=== PATIENT | male | born 1955 | race Caucasian/White ===

== ENCOUNTER 2021-06-07 22:45 | Inpatient (IN) | payer MEDICARE, MEDICAID ==
[~2021-06-07] VITALS: Ht 182.9 cm; Wt 79.0 kg
[2021-06-08] MEDS ORDERED: ringers solution, lactated 1000ml IV soln IV ONE
[2021-06-08 00:32] LABS: BASOPHILS % (AUTO) 0 % (0-1); EOSINOPHILS % (AUTO) 0 % (0-6); HEMATOCRIT 40.7 % (42.0-52.0); HEMOGLOBIN 14.2 g/dl (14.0-17.9); LYMPHOCYTES # (AUTO) 0.3 X10'3 (1.1-4.8); LYMPHOCYTES % (AUTO) 2.7 % (21-51); MEAN CORPUSCULAR HEMOGLOBIN 30.6 PG (27.0-31.0); MEAN CORPUSCULAR VOLUME 87.4 FL (78-98); MEAN PLATELET VOLUME 9.4 FL (7.4-10.4); MONOCYTES # (AUTO) 0.3 X10'3 (0-0.9); MONOCYTES % (AUTO) 3.2 % (2-12); NEUTROPHILS % (AUTO) 94.1 % (42-75); PLATELET COUNT 160 X10'3 (140-440); RED BLOOD COUNT 4.66 X10'6 (4.70-6.10); RED CELL DISTRIBUTION WIDTH 14.9 % (11.5-14.5); WHITE BLOOD COUNT 9.6 X10'3 (4.5-11.0)
[2021-06-08 00:34] LABS: ALANINE AMINOTRANSFERASE 21 U/L (12-78); ALBUMIN/GLOBULIN RATIO 0.6 (1.1-1.5); ALKALINE PHOSPHATASE 108 IU/L (46-116); ANION GAP 24 (8-16); ASPARTATE AMINO TRANSFERASE 29 U/L (10-37); BILIRUBIN,TOTAL 0.2 MG/DL (0.1-1.0); BLOOD UREA NITROGEN 138 MG/DL (7-18); BUN/CREATININE RATIO 24.6 (5.4-32.0); CALCIUM 7.5 MG/DL (8.5-10.1); CHLORIDE 100 MMOL/L (99-107); CREATININE 5.62 MG/DL (0.60-1.10); GLUCOSE 120 MG/DL (70-104); SODIUM 139 MMOL/L (135-145); TOTAL CARBON DIOXIDE 15.4 MMOL/L (24-32); TOTAL PROTEIN 7.8 G/DL (6.4-8.2); eGFR 10 ML/MIN
[2021-06-08] MEDS ORDERED: acetaminophen 325mg tablet PO PRN (00:50)
[2021-06-08] MEDS ORDERED: ondansetron/PF 4mg/2ml inj IV PRN (00:50)
[2021-06-08] MEDS: sodium bicarbonate (8.4%) inj. 150 MEQ in dextrose 5%-water 1,000 ML IV SCH ×2 (01:48→16:20)
--- NOTE | 2021-06-08 02:55 | NUR ---
Received report from Joseph DIANA from ED. Patient came up to floor via gurney, patient able to transfer to bed stand by assistance. Bed placed in locked & low position. Call light within reach.
[2021-06-08 03:14] VITALS: BP 115/68
[2021-06-08 04:09] LABS: COLOR,URINE YELLOW (Yellow); UA COLLECTION TYPE CLN CATCH MIDSTREAM
[2021-06-08 04:10] LABS: CLARITY,URINE CLEAR (Clear); PROTEIN,URINE 30 mg/dl (Neg)
[2021-06-08 04:11] LABS: GLUCOSE, URINE NEGATIVE (Neg); KETONES,URINE NEGATIVE (Neg); LEUKOCYTE ESTERASE ,URINE TRACE (Neg); NITRITES, URINE NEGATIVE (Neg); OCCULT BLOOD,URINE MODERATE (Neg); UROBILINOGEN,URINE 0.2 E.U/dL (0.2-1.0)
[2021-06-08 04:12] LABS: BACTERIA,URINE FEW /HPF (Neg); RBC,URINE 0-2 /HPF (0-2); SQUAMOUS EPITHELIAL CELL,UR FEW /LPF (FEW); STARCH,URINE FEW /HPF (NEGATIVE); WBC,URINE 0-4 /HPF (0-4)
[2021-06-08 06:00] VITALS: BP 112/69
--- NOTE | 2021-06-08 06:26 | NUR ---
Problems reprioritized. Patient report given, questions answered & plan of care reviewed with Marge DIANA.
--- NOTE | 2021-06-08 06:45 | NUR ---
Patient in room ORTHO 4009C. I have received report from LEBRON JI and had the opportunity to ask questions and assume patient care.
[2021-06-08] MEDS ORDERED: dexamethasone 4mg/ml inj IV SCH (08:00)
[2021-06-08] MEDS ORDERED: heparin, porcine 5000 units/ml vial SQ SCH (08:00)
[2021-06-08] MEDS ORDERED: pantoprazole 40 MG vial IV SCH (08:00)
[2021-06-08] MEDS ORDERED: FLU VACC QS2021-22(6MOS UP)/PF 60 MCG/0.5 ML SYRINGE IM ONE (09:00)
[2021-06-08 10:00] VITALS: BP 104/49
[2021-06-08] MEDS: dexamethasone inj 6 MG in normal saline 50ml IV soln 50 ML IV SCH ×2 (11:13→19:58)
[2021-06-08 12:10] LABS: BASOPHILS % (AUTO) 0.1 % (0-1); EOSINOPHILS % (AUTO) 0 % (0-6); HEMATOCRIT 41.6 % (42.0-52.0); HEMOGLOBIN 13.9 g/dl (14.0-17.9); LYMPHOCYTES # (AUTO) 0.4 X10'3 (1.1-4.8); LYMPHOCYTES % (AUTO) 4.7 % (21-51); MEAN CORPUSCULAR HEMOGLOBIN 29.9 PG (27.0-31.0); MEAN CORPUSCULAR HGB CONC 33.5 g/dL (33.0-36.5); MEAN CORPUSCULAR VOLUME 89.1 FL (78-98); MEAN PLATELET VOLUME 9.3 FL (7.4-10.4); MONOCYTES # (AUTO) 0.4 X10'3 (0-0.9); MONOCYTES % (AUTO) 5.5 % (2-12); NEUTROPHILS # (AUTO) 7.1 X10'3 (1.8-7.7); NEUTROPHILS % (AUTO) 89.7 % (42-75); PLATELET COUNT 178 X10'3 (140-440); RED BLOOD COUNT 4.66 X10'6 (4.70-6.10); RED CELL DISTRIBUTION WIDTH 14.7 % (11.5-14.5)
[2021-06-08 12:23] LABS: D-DIMER 1.27 MG/L FEU (0-0.50)
[2021-06-08 12:25] LABS: ALANINE AMINOTRANSFERASE 18 U/L (12-78); ALBUMIN 2.8 G/DL (3.4-5.0); ALBUMIN/GLOBULIN RATIO 0.6 (1.1-1.5); ALKALINE PHOSPHATASE 92 IU/L (46-116); ANION GAP 19 (8-16); ASPARTATE AMINO TRANSFERASE 33 U/L (10-37); BILIRUBIN,TOTAL 0.2 MG/DL (0.1-1.0); BLOOD UREA NITROGEN 114 MG/DL (7-18); BUN/CREATININE RATIO 33.2 (5.4-32.0); C-REACTIVE PROTEIN 9.06 MG/DL (0.0-0.5); CALCIUM 7.5 MG/DL (8.5-10.1); CHLORIDE 104 MMOL/L (99-107); CREATININE 3.43 MG/DL (0.60-1.10); GLUCOSE 118 MG/DL (70-104); POTASSIUM 3.7 MMOL/L (3.5-5.1); SODIUM 140 MMOL/L (135-145); TOTAL CARBON DIOXIDE 16.6 MMOL/L (24-32); TOTAL PROTEIN 7.5 G/DL (6.4-8.2); eGFR 18 ML/MIN
[2021-06-08] MEDS ORDERED: OMEP-50 PO (12:41)
[2021-06-08] MEDS ORDERED: HYDR12.55 PO (12:41)
[2021-06-08] MEDS ORDERED: IBUP-1986 PO (12:41)
[2021-06-08] MEDS ORDERED: BUDE10.2 PO (12:41)
[2021-06-08] MEDS ORDERED: ALBU18HF2 PO (12:41)
[2021-06-08] MEDS ORDERED: ENAL-79 PO (12:41)
[2021-06-08] MEDS ORDERED: ALBUTEROL INHALER 1 PUFF/90 MCG INHALER IH PRN (13:00)
[2021-06-08 15:00] VITALS: BP 99/47
[2021-06-08 18:00] VITALS: BP 99/62
--- NOTE | 2021-06-08 18:29 | NUR ---
Patient in room ORTHO 4009. I have received report from Marge DIANA and had the opportunity to ask questions and assume patient care.
--- NOTE | 2021-06-08 19:46 | NUR ---
Problems reprioritized. Patient report given, questions answered & plan of care reviewed with LEBRON JI.
[2021-06-08] MEDS: enoxaparin 40mg/0.4ml syringe SUBCUT SCH (19:58)
[2021-06-08] MEDS ORDERED: dexamethasone inj 6 MG in normal saline 50ml IV soln 50 ML IV SCH (20:00)
[2021-06-08] MEDS: temazepam 15mg capsule PO PRN (21:38)
[2021-06-08] MEDS: SYMBICORT PO SCH (21:38)
--- NOTE | 2021-06-08 21:43 | NUR ---
Patient refusing flu shot and wants to receive vaccination at primary MD.
[2021-06-08 22:00] VITALS: BP 116/76
[2021-06-09 02:00] VITALS: BP 121/60
[2021-06-09] MEDS: sodium bicarbonate (8.4%) inj. 150 MEQ in dextrose 5%-water 1,000 ML IV SCH (03:52)
[2021-06-09 06:00] VITALS: BP 121/58
--- NOTE | 2021-06-09 06:06 | NUR ---
Problems reprioritized. Patient report given, questions answered & plan of care reviewed with Noreen DIANA.
[2021-06-09] MEDS ORDERED: pantoprazole 40mg Tablet.DR PO SCH (07:30)
[2021-06-09] MEDS: enoxaparin 40mg/0.4ml syringe SUBCUT SCH ×2 (08:17→19:13)
[2021-06-09] MEDS: pantoprazole 40mg Tablet.DR PO SCH (08:17)
[2021-06-09] MEDS: lisinopril 20mg tablet PO SCH (08:17)
[2021-06-09] MEDS: dexamethasone inj 6 MG in normal saline 50ml IV soln 50 ML IV SCH ×2 (08:18→19:12)
[2021-06-09] MEDS: SYMBICORT PO SCH ×2 (08:26→19:14)
[2021-06-09 08:36] LABS: BASOPHILS % (AUTO) 0.1 % (0-1); EOSINOPHILS % (AUTO) 0 % (0-6); HEMATOCRIT 37.3 % (42.0-52.0); HEMOGLOBIN 12.8 g/dl (14.0-17.9); LYMPHOCYTES # (AUTO) 0.5 X10'3 (1.1-4.8); LYMPHOCYTES % (AUTO) 7.3 % (21-51); MEAN CORPUSCULAR HEMOGLOBIN 30.1 PG (27.0-31.0); MEAN CORPUSCULAR HGB CONC 34.4 g/dL (33.0-36.5); MEAN CORPUSCULAR VOLUME 87.7 FL (78-98); MEAN PLATELET VOLUME 9.3 FL (7.4-10.4); MONOCYTES # (AUTO) 0.5 X10'3 (0-0.9); MONOCYTES % (AUTO) 7.3 % (2-12); NEUTROPHILS # (AUTO) 5.5 X10'3 (1.8-7.7); NEUTROPHILS % (AUTO) 85.3 % (42-75); PLATELET COUNT 181 X10'3 (140-440); RED BLOOD COUNT 4.25 X10'6 (4.70-6.10); RED CELL DISTRIBUTION WIDTH 14.7 % (11.5-14.5); WHITE BLOOD COUNT 6.4 X10'3 (4.5-11.0)
[2021-06-09 08:58] LABS: ALANINE AMINOTRANSFERASE 20 U/L (12-78); ALBUMIN 2.7 G/DL (3.4-5.0); ALBUMIN/GLOBULIN RATIO 0.6 (1.1-1.5); ALKALINE PHOSPHATASE 85 IU/L (46-116); ANION GAP 15 (8-16); ASPARTATE AMINO TRANSFERASE 39 U/L (10-37); BILIRUBIN,TOTAL 0.3 MG/DL (0.1-1.0); BLOOD UREA NITROGEN 97 MG/DL (7-18); BUN/CREATININE RATIO 43.7 (5.4-32.0); CALCIUM 7.3 MG/DL (8.5-10.1); CHLORIDE 102 MMOL/L (99-107); CREATININE 2.22 MG/DL (0.60-1.10); GLUCOSE 126 MG/DL (70-104); POTASSIUM 3.7 MMOL/L (3.5-5.1); SODIUM 144 MMOL/L (135-145); TOTAL CARBON DIOXIDE 26.9 MMOL/L (24-32); TOTAL PROTEIN 7.4 G/DL (6.4-8.2); eGFR 30 ML/MIN
[2021-06-09 09:21] LABS: D-DIMER 0.86 MG/L FEU (0-0.50)
[2021-06-09 10:00] VITALS: BP 103/64
[2021-06-09] MEDS: normal saline 1000ml 1,000 ML IV SCH ×2 (13:59→23:29)
[2021-06-09 14:00] VITALS: BP 96/69
[2021-06-09 18:00] VITALS: BP 109/58
--- NOTE | 2021-06-09 18:38 | NUR ---
Problems reprioritized. Patient report given, questions answered & plan of care reviewed with LEBRON Westfall.
--- NOTE | 2021-06-09 18:40 | NUR ---
Patient in room ORTHO 4009. I have received report from Noreen DIANA and had the opportunity to ask questions and assume patient care.
[2021-06-09] MEDS: temazepam 15mg capsule PO PRN (20:46)
[2021-06-09 22:00] VITALS: BP 103/72
[2021-06-10 02:00] VITALS: BP 102/72
[2021-06-10 06:00] VITALS: BP 119/73
--- NOTE | 2021-06-10 06:52 | NUR ---
Problems reprioritized. Patient report given, questions answered & plan of care reviewed with Elisabeth DIANA.
[2021-06-10 08:11] LABS: BASOPHILS % (AUTO) 0 % (0-1); EOSINOPHILS % (AUTO) 0 % (0-6); HEMATOCRIT 36.1 % (42.0-52.0); HEMOGLOBIN 12.5 g/dl (14.0-17.9); LYMPHOCYTES # (AUTO) 0.4 X10'3 (1.1-4.8); LYMPHOCYTES % (AUTO) 6.1 % (21-51); MEAN CORPUSCULAR HEMOGLOBIN 30.2 PG (27.0-31.0); MEAN CORPUSCULAR HGB CONC 34.5 g/dL (33.0-36.5); MEAN CORPUSCULAR VOLUME 87.5 FL (78-98); MEAN PLATELET VOLUME 8.7 FL (7.4-10.4); MONOCYTES # (AUTO) 0.4 X10'3 (0-0.9); MONOCYTES % (AUTO) 6.5 % (2-12); NEUTROPHILS # (AUTO) 5.2 X10'3 (1.8-7.7); NEUTROPHILS % (AUTO) 87.4 % (42-75); PLATELET COUNT 186 X10'3 (140-440); RED BLOOD COUNT 4.12 X10'6 (4.70-6.10); RED CELL DISTRIBUTION WIDTH 14.7 % (11.5-14.5); WHITE BLOOD COUNT 5.9 X10'3 (4.5-11.0)
[2021-06-10 08:49] LABS: ALANINE AMINOTRANSFERASE 23 U/L (12-78); ALBUMIN 2.7 G/DL (3.4-5.0); ALBUMIN/GLOBULIN RATIO 0.6 (1.1-1.5); ALKALINE PHOSPHATASE 85 IU/L (46-116); ANION GAP 14 (8-16); ASPARTATE AMINO TRANSFERASE 42 U/L (10-37); BILIRUBIN,TOTAL 0.4 MG/DL (0.1-1.0); BLOOD UREA NITROGEN 67 MG/DL (7-18); BUN/CREATININE RATIO 45.9 (5.4-32.0); C-REACTIVE PROTEIN 4.85 MG/DL (0.0-0.5); CALCIUM 7.8 MG/DL (8.5-10.1); CHLORIDE 105 MMOL/L (99-107); CREATININE 1.46 MG/DL (0.60-1.10); GLUCOSE 109 MG/DL (70-104); POTASSIUM 4.1 MMOL/L (3.5-5.1); SODIUM 145 MMOL/L (135-145); TOTAL CARBON DIOXIDE 26.4 MMOL/L (24-32); TOTAL PROTEIN 7.2 G/DL (6.4-8.2); eGFR 48 ML/MIN
[2021-06-10 08:53] LABS: D-DIMER 0.68 MG/L FEU (0-0.50)
[2021-06-10] MEDS: dexamethasone inj 6 MG in normal saline 50ml IV soln 50 ML IV SCH (09:16)
[2021-06-10] MEDS: pantoprazole 40mg Tablet.DR PO SCH (09:25)
[2021-06-10] MEDS: enoxaparin 40mg/0.4ml syringe SUBCUT SCH (09:25)
[2021-06-10] MEDS: lisinopril 20mg tablet PO SCH (09:28)
[2021-06-10] MEDS: normal saline 1000ml 1,000 ML IV SCH (10:06)
[2021-06-10] MEDS ORDERED: nicotine 14mg patch - 24hr TD SCH (10:55)
[2021-06-10 11:00] VITALS: BP 138/75
[2021-06-10] MEDS ORDERED: DEXA2TAB PO (11:20)
[2021-06-10] MEDS ORDERED: NICO-687 TOP (11:20)
--- NOTE | 2021-06-10 11:24 | NUR ---
O2 Sat at rest on room air:_89__% If below 89%: Recovery O2 Sat at rest on ___LPM:___%:___% via (mask/nasal cannula, etc..) No further documentation is necessary. If O2 Sat did not drop below 89% on room air,ambulate patient on room air. O2 Sat while ambulating on room air:_86__% Recovery O2 Sat while ambulating on _2__LPM:_90__% No further documentation is necessary. If patient does not drop below 89% while ambulating, he/she does not qualify for home O2.
== END 2021-06-10 15:00 | disposition home or self-care (01) | DRG 177 ==
LOC: ER 22:46 → UNDOADMIN 06-08 00:51 → ED HOLD 06-08 00:51 → UNDOADMIN 06-08 02:00 → ED HOLD 06-08 02:00 → ORTHO 4S 06-08 02:55 → UNDODISIN 06-10 15:00
PROVIDERS: ADMIT Internal Medicine; ATTEND Family Medicine
DX: U07.1 COVID-19 (principal); J96.00 Acute respiratory failure, unspecified whether with hypoxia or hypercapnia; J12.82 Pneumonia due to coronavirus disease 2019; N17.0 Acute kidney failure with tubular necrosis; E87.2 Acidosis; J44.0 Chronic obstructive pulmonary disease with (acute) lower respiratory infection; E86.0 Dehydration; F17.210 Nicotine dependence, cigarettes, uncomplicated; F12.90 Cannabis use, unspecified, uncomplicated; M19.90 Unspecified osteoarthritis, unspecified site; Z28.21 Immunization not carried out because of patient refusal; Z79.899 Other long term (current) drug therapy; Z71.6 Tobacco abuse counseling
CPT/HCPCS: 36415; 80053; 81001; 83605; 85025; 85379; 86140; 87081; 87088; 99285; C9113; G0378; J1100; J1644; J1650; J7030; J7120